=== PATIENT | female | born 1985 | race Caucasian/White ===

== ENCOUNTER 2018-01-16 12:53 | Outpatient (CLI) | payer OTHER | END 2018-01-16 15:45 | disposition home or self-care (01) | LOC: OBT 12:53 → L-D 12:54 → OBT 15:45 | DX: O36.8130 Decreased fetal movements, third trimester, not applicable or unspecified (principal); Z3A.27 27 weeks gestation of pregnancy | CPT/HCPCS: 76818 ==

== ENCOUNTER 2018-04-02 09:03 | Inpatient (IN) | payer OTHER ==
[2018-04-02] MEDS ORDERED: IBUPROFEN 600 MG TAB PO (13:30)
[2018-04-02] MEDS ORDERED: MISOPROSTOL 200 MCG TAB PR (13:30)
[2018-04-02] MEDS ORDERED: LIDOCAINE 1% (MPF) 30 ML INJ INJ (13:30)
[2018-04-02] MEDS ORDERED: METHYLERGONOVINE 0.2 MG INJ IM (13:30)
[2018-04-02] MEDS ORDERED: CARBOPROST 250 MCG INJ IM (13:30)
[2018-04-02] MEDS ORDERED: OXYTOCIN 30 UNITS/LR 500 ML IV ×3 (13:30)
[2018-04-02] MEDS ORDERED: AMPICILLIN 2 GM/NS (PMX) 100 ML IV (13:30)
[2018-04-02] MEDS ORDERED: BUTORPHANOL 2 MG INJ IV (13:30)
[2018-04-02 13:49] LABS: ADD MAN DIFF? NO
[2018-04-02 13:57] LABS: BASOPHILS % 0.2 % (0.0-2.0); EOSINOPHILS # 0.1 10^3/ul (0.0-0.5); EOSINOPHILS % 0.6 % (0.0-7.0); HEMATOCRIT 36.7 % (37.0-47.0); LYMPHOCYTES # 1.7 10^3/ul (0.8-2.9); LYMPHOCYTES % 21.4 % (15.0-51.0); MEAN CORPUSCULAR HEMOGLOBIN 27.1 pg (29.0-33.0); MEAN CORPUSCULAR HGB CONC 32.7 g/dl (32.0-37.0); MEAN CORPUSCULAR VOLUME 82.8 fl (82.0-101.0); MEAN PLATELET VOLUME 11.3 fl (7.4-10.4); MONOCYTE # 0.3 10^3/ul (0.3-0.9); MONOCYTES % 3.9 % (0.0-11.0); NEUTROPHIL # 5.9 10^3/ul (1.6-7.5); PLATELET COUNT 219 10^3/UL (140-415); RED BLOOD COUNT 4.43 10^6/ul (4.20-5.40); RED CELL DISTRIBUTION WIDTH 15.1 % (11.5-14.5)
[2018-04-02 14:16] LABS: INR 0.83; PROTIME 11.5 Sec (11.9-14.9); PT RATIO 0.9
[2018-04-02 14:17] LABS: PARTIAL THROMBOPLASTIN TIME 26.6 Sec (23.0-35.0)
[2018-04-02] MEDS: LACTATED RINGER'S 1,000 ML IV* ×2 (15:48→23:02)
[2018-04-02] MEDS ORDERED: AMPICILLIN 1 GM/NS (PMX) 50 ML IV (16:00)
[2018-04-02 16:53] LABS: RAPID PLASMA REAGIN NONREACTIVE (NR)
[2018-04-02] MEDS: ACETAMINOPHEN 325 MG TAB PO (21:14)
[2018-04-03] MEDS: LACTATED RINGER'S 1,000 ML IV* (07:17)
[2018-04-03 08:18] LABS: HEPATITIS B SURFACE ANTIGEN NEGATIVE (NEGATIVE)
== END 2018-04-03 12:22 | disposition home or self-care (01) | DRG 833 ==
LOC: OBT 09:03 → L-D 09:03 → OBT 10:48 → L-D 10:48
PROVIDERS: Obstetrics & Gynecology
DX: O26.893 Other specified pregnancy related conditions, third trimester (principal); Z3A.38 38 weeks gestation of pregnancy; R10.2 Pelvic and perineal pain
CPT/HCPCS: 76815; 85025; 85610; 85730; 86592; 86900; 86901; 87340

== ENCOUNTER 2018-12-17 14:20 | Emergency (ER) | payer MEDICAID, OTHER ==
[2018-12-17 15:47] LABS: ADD MAN DIFF? NO
[2018-12-17] MEDS: SOD CHLORIDE 0.9% 1,000 ML IV (15:47)
[2018-12-17] MEDS: ONDANSETRON 4 MG INJ IV (15:47)
[2018-12-17 15:52] LABS: BASOPHILS % 0.3 % (0.0-2.0); EOSINOPHILS % 0.5 % (0.0-7.0); HEMATOCRIT 36.8 % (37.0-47.0); HEMOGLOBIN 12.4 g/dl (12.0-16.0); LYMPHOCYTES # 0.9 10^3/ul (0.8-2.9); LYMPHOCYTES % 24.6 % (15.0-51.0); MEAN CORPUSCULAR HGB CONC 33.7 g/dl (32.0-37.0); MEAN CORPUSCULAR VOLUME 80.2 fl (82.0-101.0); MEAN PLATELET VOLUME 10.5 fl (7.4-10.4); MONOCYTE # 0.2 10^3/ul (0.3-0.9); MONOCYTES % 4.1 % (0.0-11.0); NEUTROPHIL # 2.6 10^3/ul (1.6-7.5); NEUTROPHILS % 68.9 % (39.0-77.0); PLATELET COUNT 165 10^3/UL (140-415); RED BLOOD COUNT 4.59 10^6/ul (4.20-5.40); RED CELL DISTRIBUTION WIDTH 13.3 % (11.5-14.5)
[2018-12-17 15:52] LABS: WHITE BLOOD COUNT 3.7 10^3/ul (4.8-10.8)
[2018-12-17 16:10] LABS: ALANINE AMINOTRANSFERASE 75 IU/L (13-69); ALBUMIN 4.5 g/dl (3.3-4.9); ALBUMIN/GLOBULIN RATIO 1.18; ALKALINE PHOSPHATASE 125 IU/L (42-121); ANION GAP 13 (5-13); ASPARTATE AMINO TRANSFERASE 84 IU/L (15-46); BILIRUBIN,INDIRECT 0.9 mg/dl (0-1.1); BILIRUBIN,TOTAL 0.9 mg/dl (0.2-1.3); BLOOD UREA NITROGEN 7 mg/dl (7-20); CARBON DIOXIDE 27 mmol/L (21-31); CHLORIDE 98 mmol/L (97-110); CREATININE 0.67 mg/dl (0.44-1.00); Estimated GFR > 60 mL/min (>60); GLUCOSE 107 mg/dl (70-220); LIPASE 76 U/L (23-300); POTASSIUM 3.7 mmol/L (3.5-5.1); SODIUM 138 mmol/L (135-144); TOTAL PROTEIN 8.3 g/dl (6.1-8.1)
[2018-12-17 16:14] LABS: ADD UMIC YES; UR ASCORBIC ACID NEGATIVE (NEGATIVE); UR BACTERIA FEW /HPF (NONE SEEN); UR BILIRUBIN (Dip) 1+ mg/dL (NEGATIVE); UR BLOOD (Dip) 3+ mg/dL (NEGATIVE); UR CLARITY CLOUDY (CLEAR); UR COLOR AMBER (YELLOW); UR GLUCOSE (Dip) NEGATIVE (NEGATIVE); UR KETONES (Dip) TRACE mg/dL (NEGATIVE); UR LEUKOCYTE ESTERASE (Dip) 2+ Leu/ul (NEGATIVE); UR MUCUS FEW /HPF (NONE SEEN); UR NITRITE (Dip) NEGATIVE (NEGATIVE); UR RBC > 182 /HPF (0-5); UR SPECIFIC GRAVITY (Dip) 1.017 (1.003-1.030); UR SQUAMOUS EPITHELIAL CELL MANY /HPF (FEW); UR TOTAL PROTEIN (Dip) 2+ mg/dl (NEGATIVE); UR UROBILINOGEN (Dip) 2+ mg/dL (NEGATIVE); UR WBC 107 /HPF (0-5)
[2018-12-17] MEDS: CEFTRIAXONE 1 GM/50 ML (PMX) 50 ML IVPB (17:59)
[2018-12-17] MEDS: ACETAMINOPHEN 500 MG TAB PO (18:51)
[2018-12-17 19:30] LABS: MONOTEST Negative (NEG)
== END 2018-12-17 19:48 | disposition home or self-care (01) ==
LOC: FTE 14:20
DX: R50.9 Fever, unspecified (principal); R11.10 Vomiting, unspecified
CPT/HCPCS: 36415; 74176; 76705; 80053; 81001; 81025; 83690; 85025; 86308; 87086; 87880; 96374; 96375; 99285-25